=== PATIENT | male | born 1995 | race Caucasian/White ===

== ENCOUNTER 2017-09-15 18:03 | Inpatient (IN) | payer BC, OTHER ==
[~2017-09-15] VITALS: Ht 190.5 cm; Wt 77.1 kg
[2017-09-15 19:45] VITALS: BP 119/71
--- NOTE | 2017-09-15 19:45 | NUR ---
Pre-Admission Assessment Patient is a 22 year old male seen in intake. He is alert and oriented x4. Patient is noted to be fidgety and hyperactive. No shortness of breath noted. Discussed with patient admission policies of the unit and he is able to verbalize understanding. Patient is coherent and able to respond to questions appropriately. Patient reported that he is arriving from [facility] where he was living with roommates. Patient is ambulatory with steady gait. Vital signs taken and noted as follows: 119/71, 66, 100%, 16, 98.0, 0/10. Home medications policies reviewed with patient and he is able to verbalize understanding in regards to narcotic medication disposal. No home medications noted with patient. All needs attended to promptly. Will continue admission assessment on unit.
[2017-09-15 20:10] VITALS: BP 110/65
--- NOTE | 2017-09-15 20:10 | NUR ---
Admission Patient is a 22 year old male who is being admitted for medically supervised withdrawal from ETOH. Patient does not appear to be intoxicated at the moment but he is noted to be fidgety and hyperactive. He is oriented x4, speech is clear. When asked to describe his signs and symptoms of withdrawal patient states "I dont know. I've never gone through this." No history or seizures noted. Patient reports his current substance use as follows: 1. Beer: 4 12oz cans of beer 3-4 x a week PO. Patients last use was noted 09/14/17. He first began using at the age of [age] years old. 2. Marijuana: 0.5gm via inhalation daily. Patients last use was 09/15/17. He first began using at the age of [age] years old. 3. Psychedelic Substances (including psilocybin, lysergic, diethylamide (LSD), and dimethyltryptamine (DMT)): 3.5GM x2 a week PO. Patients last use was noted 09/12/17. Patient first began using at the age of [age] years old. 4. Adderall: 1 tab socially PO. Patients use was noted 09/12/17. Patient first began using at the age of [age] years old. Patient states that he is seeking treatment today because "Im trying to fix things and have more a boy meets world moment." This is patients first time in treatment. Patient states "Im trying to be more mindful of my time." Vital signs noted as 119/71, 66, 16, 100%, 98.0, and 0/10 pain. Breathing even and non labored. Lung sounds clear with no cough noted. Bowel sounds hypoactive in all 4 quadrants. Skin noted is noted intact. No known allergies note, wishes to be full code, and follow a regular diet. 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 Patient does not have a primary care physician. Past medical history is noted as Chronic Prostatitis. No History of seizures noted. No Home medications noted. Patient was educated and encouraged to participate in group therapy and individual therapy. All information reviewed with MD with orders placed. Labs to be rendered. PRN Medications available for increased signs and symptoms. Admission CIWA 4. Will continue plan of care as ordered.
[2017-09-15] MEDS ORDERED: MAG HYDROX/AL HYDROX/SIMETH 30 ML LIQUID UDC PO PRN (20:15)
[2017-09-15] MEDS ORDERED: ACETAMINOPHEN 325 MG TABLET PO PRN (20:15)
[2017-09-15] MEDS ORDERED: MIRALAX 17 GM POWD.PACK PO PRN (20:15)
[2017-09-15] MEDS ORDERED: ONDANSETRON 4 MG/2 ML VIAL IM PRN (20:15)
[2017-09-15] MEDS ORDERED: ONDANSETRON ODT 4 MG TAB.RAPDIS SL PRN (20:15)
[2017-09-15] MEDS ORDERED: IBUPROFEN 400 MG TABLET PO PRN (20:15)
[2017-09-15] MEDS ORDERED: LOPERAMIDE HCL 2 MG CAPSULE PO PRN ×2 (20:15)
[2017-09-15] MEDS ORDERED: THIAMINE HCL 200 MG/2 ML VIAL IM ONE (20:15)
[2017-09-15] MEDS ORDERED: LORAZEPAM 2 MG/1 ML VIAL IM PRN (20:15)
[2017-09-15] MEDS ORDERED: CLONIDINE HCL 0.1 MG TABLET PO PRN (20:15)
[2017-09-15] MEDS ORDERED: LORAZEPAM 1 MG TABLET PO PRN ×2 (20:15)
[2017-09-15] MEDS ORDERED: diphenhydrAMINE 50 MG CAPSULE PO PRN (20:15)
[2017-09-15] MEDS ORDERED: MAGNESIUM HYDROXIDE 30 ML LIQUID UDC PO PRN (20:15)
[2017-09-15 20:36] LABS: *AMPHETAMINE, URINE NEGATIVE (NEGATIVE); *BARBITURATE, URINE NEGATIVE (NEGATIVE); *CANNABINOID, URINE POSITIVE (NEGATIVE); *COCCAINE, URINE NEGATIVE (NEGATIVE); *OPIATE, URINE NEGATIVE (NEGATIVE); *PHENCYCLIDINE SCREEN,URINE NEGATIVE (NEGATIVE)
[2017-09-15 20:59] LABS: BASOPHILS % (AUTO) 0.3 % (0.0-2.0); EOSINOPHILS # (AUTO) 0.2 K/uL (0.0-0.7); HEMATOCRIT 45.4 % (36.7-47.1); HEMOGLOBIN 15.6 g/dL (12.5-16.3); LYMPHOCYTES % (AUTO) 20.4 % (20.5-51.5); MEAN CORPUSCULAR HEMOGLOBIN 31.7 uug (23.8-33.4); MEAN CORPUSCULAR HGB CONC 34 g/dL (32.5-36.3); MEAN CORPUSCULAR VOLUME 92.6 fL (73.0-96.2); MONOCYTES # (AUTO) 0.7 K/uL (2.0-10.0); MONOCYTES % (AUTO) 7.2 % (0.0-11.0); NEUTROPHILS # (AUTO) 6.8 K/uL (1.8-8.9); NEUTROPHILS % (AUTO) 70.1 % (38.5-71.5); PLATELET COUNT (AUTO) 250 K/uL (152-348); WHITE BLOOD COUNT (AUTO) 9.7 K/uL (3.6-10.2)
[2017-09-15 21:06] LABS: ALANINE AMINOTRANSFERASE 42 U/L (16-63); ALKALINE PHOSPHATASE 89 U/L (50-136); ASPARTATE AMINOTRANSFERASE 21 U/L (15-37); BILIRUBIN,TOTAL 0.2 mg/dL (0.2-1.0); CARBON DIOXIDE 30 mmol/L (21-32); CHLORIDE 102 mmol/L (98-107); CREATININE 1.2 mg/dL (0.6-1.3); GLUCOSE 75 mg/dL (74-106); POTASSIUM 3.9 mmol/L (3.5-5.1); TOTAL PROTEIN, SERUM 7.6 g/dL (6.4-8.2); UREA NITROGEN, BLOOD 20 mg/dL (7-18)
[2017-09-15 21:21] LABS: ETHANOL < 3 MG/DL (0-0)
[2017-09-16 00:47] VITALS: BP 119/61
[2017-09-16 04:20] VITALS: BP 99/58
--- NOTE | 2017-09-16 07:30 | NUR ---
Start of Shift Notes: Received patient in his room. Laying in bed, covered with sheets. Awake, alert and verbally responsive. Denies S/I or H/I noted. No AV hallucinations. Patient Patient states "I'm so glad I came here than half-way." Patient is a 22 year old male admitted for ETOH withdrawal who is on PRNs at this time to manage symptoms related to ETOH withdrawal. Educated patient on the current plan of care for the day and his medication regimen. Encouraged oral fluid intake and encouraged group participation to learn new skills to prevent relapse. Will continue to monitor closely. Last CIWA 6, Slept for 3 hours.
[2017-09-16 08:00] VITALS: BP 121/67
[2017-09-16] MEDS: MULTIVITAMINS,THERAPEUTIC TABLET PO SCH (08:34)
[2017-09-16] MEDS: FOLIC ACID 1 MG TABLET PO SCH (08:34)
[2017-09-16] MEDS: THIAMINE HCL 100 MG TABLET PO SCH (08:34)
[2017-09-16] MEDS ORDERED: TUBERCULIN,PURIF.PROT.DERIV. 5 TU/0.1 ML TEST ID ONE (09:00)
[2017-09-16] MEDS ORDERED: HYDROXYZINE PAMOATE 25 MG CAPSULE PO PRN (09:00)
[2017-09-16 12:00] VITALS: BP 127/84
--- NOTE | 2017-09-16 13:00 | NUR ---
Mid Shift Notes: Patient is in the rec room with his peers. CIWA 4 at 1200. VS stable.
[2017-09-16 16:00] VITALS: BP 131/64
--- NOTE | 2017-09-16 19:00 | NUR ---
End of Shift Notes: Patient continues to be on PRNs to manage withdrawal symptoms related to ETOH. VS monitored closely. No significant abnormalities noted. Withdrawal symptoms were closely monitored. Initial CIWA 4, patient presented with anxiety/agitation. Last CIWA 3. He is cooperative with care and treatment. Able to participate in group and activities. Appetite good. TB test given to patients left forearm. All needs met and attended. Will continue to monitor closely.
--- NOTE | 2017-09-16 19:30 | NUR ---
START OF SHIFT Patient is a 22 year old male admitted for ETOH medically supervised withdrawal. on 09/15/2017 .Pt. is on PRN medication. No PRNs given at a day time. Last CIWA=5 at 16:00. Pt. states he feels good, a little bit anxious and have decreased appetite. Pt. is complaint with medication, activities and diet. Instructed patient to maintain adequate fluid and nutritional intake. Safety measures in place : bed on lowest position with side rails x2 up for safety, call light within reach. Will continue to monitor closely and offer help.
[2017-09-16 20:00] VITALS: BP 103/70
--- NOTE | 2017-09-17 06:55 | NUR ---
END OF SHIFT Patient is a 22 year old male admitted for ETOH medically supervised withdrawal. on 09/15/2017 . No PRNs given at a night time. Pt. slept through the entire night. Last CIWA=5 at 04:00 , Nsfcuq=224 ml, mrzxe=688 ml, slept= 6 hours. Safety measures in place : bed on lowest position with side rails x2 up for safety, call light within reach. Will continue to monitor closely and offer help.
--- NOTE | 2017-09-17 07:30 | NUR ---
START OF SHIFT Received report from mold shifter nurse. Pt is lying in bed resting and is easily arousable. He is a 22 yo male admitted to [facility] on 09/15 for ETOH withdrawal with a h/o using psychedelic substances and Adderall. He is A&O and ambulatory. PRN medications ordered for the management of withdrawal symptoms. He reports feeling fatigued this morning although he slept through the night. Pt educated regarding plan of care and reportable s/s. Safety measures in place.
[2017-09-17 08:00] VITALS: BP 115/58
[2017-09-17] MEDS: FOLIC ACID 1 MG TABLET PO SCH (09:00)
[2017-09-17] MEDS: THIAMINE HCL 100 MG TABLET PO SCH (09:00)
[2017-09-17] MEDS: MULTIVITAMINS,THERAPEUTIC TABLET PO SCH (09:00)
[2017-09-17 12:06] LABS: HEPATITIS B SURFACE AG Negative (Negative)
[2017-09-17 12:30] VITALS: BP 129/66
[2017-09-17 16:30] VITALS: BP 118/70
[2017-09-17] MEDS ORDERED: HYDR-3895 PO (18:45)
[2017-09-17] MEDS ORDERED: IBUP-1953 PO (18:45)
[2017-09-17] MEDS ORDERED: DIPH50CA37 PO (18:45)
[2017-09-17] MEDS ORDERED: CLON0.1T14 PO (18:45)
--- NOTE | 2017-09-17 19:26 | NUR ---
END OF SHIFT Report provided to sole blacker nurse. Pt is attending a group meeting. He is a 22 yo male admitted to [facility] on 09/15 for ETOH withdrawal with a h/o using psychedelic substances and Adderall. PRN medication ordered for the management of withdrawal symptoms. Pt is scheduled for discharge tomorrow. He attended all group meetings. His appetite was poor earlier in the day and he ate 100% of dinner. No PRN medications administered. Safety measures in place.
--- NOTE | 2017-09-17 19:35 | NUR ---
START OF SHIFT Patient is a 22-year-old male admitted on 09/15/17 for ETOH withdrawal. Patient is currently not on a taper with PRN medications on hand, tolerating well. Patient is scheduled for discharge tomorrow. Patients last CIWA was 2 per day nurse. Patient received no PRN medications today. Upon assessment, patient appears restless and states he's "ready to go" in the morning. Patient is on fall and seizure precautions with no history of seizure. Safety measures in place, side rails up x2, bed locked in low position, call light within reach. Will continue to monitor.
[2017-09-17 20:00] VITALS: BP 128/75
[2017-09-18] VITALS: BP 123/71
--- NOTE | 2017-09-18 | NUR ---
CIWA DEFERRED CIWA deferred due to patient sleeping; to be assessed and scored while patient is awake. Respirations are even and unlabored, 16/min. Safety measures in place, side rails up x2, bed locked in low position, call light within reach. Will continue to monitor.
[2017-09-18 04:00] VITALS: BP 115/57
--- NOTE | 2017-09-18 05:38 | NUR ---
DISCHARGE NOTE Patient is discharging to [facility]. Vital signs as follows: BP 115/57, HR 50, RR 16/min, SpO2 100% on RA, temp. 97.7, pain 0/10. Last CIWA score 2 at 0400. Patient is stable at this time. Discharge paperwork given to patient, all belongs returned to patient. Patient left the unit at 0538.
== END 2017-09-18 05:38 | disposition other institution (70) | DRG 895 ==
LOC: SRC 18:51
PROVIDERS: ADMIT Internal Medicine; ATTEND Internal Medicine
PROC: HZ2ZZZZ Detoxification Services for Substance Abuse Treatment (ICD-10-PCS; principal; 2017-09-15)
PROC: HZ41ZZZ Group Counseling for Substance Abuse Treatment, Behavioral (ICD-10-PCS; 2017-09-16)
DX: F10.10 Alcohol abuse, uncomplicated (principal); F12.20 Cannabis dependence, uncomplicated; B96.89 Other specified bacterial agents as the cause of diseases classified elsewhere; E86.0 Dehydration; F16.10 Hallucinogen abuse, uncomplicated; Y90.0 Blood alcohol level of less than 20 mg/100 ml; N41.1 Chronic prostatitis; Z80.42 Family history of malignant neoplasm of prostate; Z72.0 Tobacco use; F32.9 Major depressive disorder, single episode, unspecified; F15.10 Other stimulant abuse, uncomplicated; Z91.5 Personal history of self-harm
CPT/HCPCS: 36415; 70030-TC; 80307; 80349; 83735; 85025; 86580; 86592; 86705; 86803; 87340; 87806; G0480